=== PATIENT | male | born 1950 | race Caucasian/White ===

== ENCOUNTER 2022-05-23 11:04 | Outpatient (CLI) | payer MEDICARE, BC, SELFPAY | END 2022-05-23 11:05 | disposition home or self-care (01) | LOC: AMB 06-11 13:17 | PROVIDERS: Visit Provider Family Medicine | DX: S19.9XXA Unspecified injury of neck, initial encounter (principal); X83.8XXA Intentional self-harm by other specified means, initial encounter; Y92.008 Other place in unspecified non-institutional (private) residence as the place of occurrence of the external cause | CPT/HCPCS: A0425; A0433 ==